=== PATIENT | female | born 1960 | race Caucasian/White ===

== ENCOUNTER → 2021-12-18 | Outpatient (CLI) | payer BC ==
--- NOTE | 2021-12-18 15:41 | CT ---
EXAMINATION TYPE: CT right knee - [facility] Protocol DATE OF EXAM: 12/18/2021 COMPARISON: NONE HISTORY: Right knee pain and osteoarthritis. CT DLP: 690.9 mGycm. Automated Exposure Control for Dose Reduction was Utilized. TECHNIQUE: CT scan of the right lower extremity is performed without contrast, axial images are obtai goldy. FINDINGS: Exam is for surgical planning and not for diagnostic purposes. Metallic hardware from right surgery is present causing streak artifact. No suspicious incidental finding at the level of the pel vis. There is small to moderate-sized suprapatellar joint effusion on the right. There is moderate sized p opliteal cyst. No suspicious incidental findings in the ankles. Surgical change to the left first toe is incidentall y noted. IMPRESSION: As above.
== END | disposition home or self-care (01) ==
LOC: RADCTMAIN 14:16
PROVIDERS: ATTEND Orthopaedic Surgery
DX: M25.561 Pain in right knee (principal)

== ENCOUNTER → 2022-01-16 | Outpatient (CLI) | payer BC ==
[2022-01-16 10:58] LABS: INR 0.9 (<1.2); Partial Thromboplastin Time 23.9 sec (22.0-30.0)
[2022-01-16 14:25] LABS: HCT 42.5 % (37.2-46.3); HGB 13.8 g/dL (12.0-15.0); MCH 27.9 pg (27.0-32.0); MCHC 32.5 g/dL (32.0-37.0); Mean Platelet Volume 10.5 fL (9.5-12.2); NRBC Per 100 WBC 0 /100 WBCS (0.0-0.0); Platelet Count 240 X 10*3/uL (140-440); RBC 4.94 X 10*6/uL (4.10-5.20); RDW 12.6 % (11.5-14.5); WBC 5.16 X 10*3/uL (4.50-10.00)
[2022-01-16 14:38] LABS: African American GFR (CKD) 58.4 (60.0-200.0); Albumin 4.8 g/dL (3.8-4.9); Albumin/Globulin Ratio 1.91 (1.60-3.17); Anion Gap 11.8 mmol/L (10.00-18.00); BUN/Creat Ratio 14.14 Ratio (12.00-20.00); Blood Urea Nitrogen 16.4 mg/dL (9.0-27.0); Calcium 10.1 mg/dL (8.7-10.3); Carbon Dioxide 28.6 mmol/L (20.0-27.5); Globulin 2.5 g/dL (1.6-3.3); Non-African American GFR(CKD) 50.4 (60.0-200.0); Potassium 4.8 mmol/L (3.5-5.5); Total Bilirubin 0.3 mg/dL (0.30-1.20); Total Protein 7.3 g/dL (6.2-8.2)
[2022-01-16 14:41] LABS: Appearance,Urine Clear (Clear); Bilirubin,Urine Negative (Negative); Blood,Urine Negative (Negative); Color,Urine Yellow (Yellow); Ketones,Urine Negative (Negative); Nitrite,Urine Negative (Negative); Specific Gravity,Urine 1.021 (1.001-1.030); Urobilinogen,Urine 0.2 (0.2,1.0)
== END | disposition home or self-care (01) ==
LOC: LABPAT 09:37
PROVIDERS: ATTEND Orthopaedic Surgery
DX: Z01.812 Encounter for preprocedural laboratory examination (principal); Z01.818 Encounter for other preprocedural examination; M16.11 Unilateral primary osteoarthritis, right hip
CPT/HCPCS: 36415; 80053; 81003; 85027; 85610; 85730; 87070; 93005

== ENCOUNTER 2022-01-24 08:36 | Observation (INO) | payer BC ==
[~2022-01-24 08:36] MED LIST: ACETAMINOPHEN TAB 500 MG TAB PO PRN; DEXAMETHASONE SOD PHOSPHATE 10 MG/ML 1 ML VIAL IV PRN; DOCUSATE 100 MG CAP PO PRN; FAMOTIDINE 20 MG/2 ML VIAL IVP PRN; HYDROmorphone 0.5 MG/0.5 ML SYRINGE IVP PRN; KETOROLAC 15 MG/ML 1 ML VIAL IVP PRN; LACTATED RINGERS 1,000 ML IV SCH; MIDAZOLAM 2 MG/2 ML VIAL IV PRN; ONDANSETRON 4 MG/2 ML VIAL IVP PRN; ROPIVACAINE 246.25 MG, EPINEPHrine 0.5 MG, KETOROLAC (30 mg/mL) 30 MG, cloNIDine HCL/PF... MISCELLANE PRN; TRANEXAMIC ACID IN NACL,ISO-OS 1,000 MG in SALINE 1 100ML.BAG IVPB PRN; oxyCODONE ER 10 MG TAB.ER.12H PO PRN
[2022-01-24 09:24] LABS: Glucose,Whole Blood 95 mg/dL (70-110)
[2022-01-24] MEDS ORDERED: LIDOCAINE 1% (10MG/ML) FOR IV START INTRADERMA ONE (09:24)
[2022-01-24] MEDS ORDERED: MIDAZOLAM 2 MG/2 ML VIAL ONE (10:46)
[2022-01-24] MEDS ORDERED: ROPIVACAINE 5 MG/ML 30 ML VIAL ONE (10:46)
[2022-01-24] MEDS ORDERED: LIDOCAINE 2% INJ 20 MG/ML (2 ML VIAL) ONE (10:46)
[2022-01-24] MEDS ORDERED: fentaNYL (PF) 50 MCG/ML 2 ML AMP ONE (10:46)
[2022-01-24] MEDS ORDERED: TRANEXAMIC ACID IN NACL,ISO-OS 1,000 MG/100 ML BAG ONE (10:46)
[2022-01-24] MEDS ORDERED: SODIUM CHLORIDE 0.9% (PF) 10 ML VIAL ONE (10:46)
[2022-01-24] MEDS ORDERED: PROPOFOL 10 MG/ML 20 ML VIAL IV ONE (10:46)
[2022-01-24] MEDS ORDERED: ROPIVACAINE 5 MG/ML 30 ML VIAL MISCELLANE ONE (11:28)
[2022-01-24] MEDS ORDERED: LACTATED RINGERS 1,000 ML IV ONE (11:41)
--- NOTE | 2022-01-24 12:44 | P.ANPRN ---
Procedure Note - Anesthesia - Nerve Block Performed Right iPack Single Time Out Performed: Yes (0957) Date of Procedure: 01/24/22 Procedure Start Time: 10:03 Procedure Stop Time: 10:05 Location of Patient: PreOp Indication: Acute Post-Operative Pain, Requested by Surgeon Specifically requested for management of pain by DrCarissa: Jean Rosenberg Sedation Type: Sedate with meaningful contact maintained Preparation: Sterile Prep Position: Supine Catheter: None Needle Types: Pajunk Needle Gauge: 21 Ultrasound used to visualize needle placement: Yes Ultrasound used to observe medication spread: Yes Injectate: 0.5% Ropivacaine (see comment for volume) (15cc + 10cc nacl pf) Blood Aspirated: No Pain Paresthesia on Injection Noted: No Resistance on Injection: Normal Image Stored and Saved: Yes Events: Uneventful and Well Tolerated
--- NOTE | 2022-01-24 12:44 | P.ANPRN ---
Procedure Note - Anesthesia - Nerve Block Performed Right Adductor Canal Single Time Out Performed: Yes (0957) Date of Procedure: 01/24/22 Procedure Start Time: 09:58 Procedure Stop Time: 10:02 Location of Patient: PreOp Indication: Acute Post-Operative Pain, Requested by Surgeon Specifically requested for management of pain by DrCarissa: Jean Rosenberg Sedation Type: Sedate with meaningful contact maintained Preparation: Sterile Prep Position: Supine Catheter: None Needle Types: Pajunk Needle Gauge: 21 Ultrasound used to visualize needle placement: Yes Ultrasound used to observe medication spread: Yes Injectate: 0.5% Ropivacaine (see comment for volume) (15cc + 10cc nacl pf) Blood Aspirated: No Pain Paresthesia on Injection Noted: No Resistance on Injection: Normal Image Stored and Saved: Yes Events: Uneventful and Well Tolerated
--- NOTE | 2022-01-24 12:45 | P.OP ---
Date of Procedure: 01/24/22 Preoperative Diagnosis: Severe right knee osteoarthritis Postoperative Diagnosis: Same Procedure(s) Performed: Right total knee arthroplasty Implants: 1. [place] Triathlon CR Femur Size #3 2. Bri Triathlon Brandon Tibial Base Size #3 3. Bri Triathlon CS poly Size #3, 9-mm 4. Rbi Triathlon all poly patella, Size #32 Anesthesia: regional, spinal Surgeon: Jean Rosenberg Floor Sander #1: Makeda Solano Estimated Blood Loss (ml): 100 IV fluids (ml): 1,200 Pathology: none sent Condition: stable Disposition: PACU Indications for Procedure: I met with the patient preoperatively in the office setting and discussed treatment of their symptomatic knee arthritis. They failed a long course of nonsurgical treatment and elected to proceed with an elective total knee replacement. I discussed the potential risks and complications at length and gave them ample time to ask questions. Risks discussed included: risks from anesthesia, superficial site surgical infection, acute and/or chronic periprosthetic joint infection, delayed wound healing, drainage, wound necrosis, instability, stiffness, stiffness requiring manipulation and/or revision surgery, damage to local blood vessels or nerves, aseptic loosening of the implants, extensor mechanism issues including disruption, patellar maltracking, avascular necrosis etc., continued or worsened knee pain, generalized dissatisfaction with surgical outcome, need for revision surgery, an inability to regain preinjury level of function, DVT, PE, other medical complications, and possibly loss of life or limb. The patient voiced their understanding that while these are the most common complications other less common complications are possible. They provided both their verbal and written consent to go forward with surgery. Operative Findings: Severe joint space loss primarily in the lateral and patellofemoral compartment with full loss of articular cartilage down to subchondral bone. Moderate articular cartilage loss medial compartment Description of Procedure: The patient was identified in preoperative holding and the correct operative extremity was verified and marked with a marker. I reviewed the consent form with the patient at length. All of their questions were answered. The patient was given a block by anesthesia. They were then brought back to the operating room. They were transferred onto the operating room table where a general anesthetic, preoperative antibiotics, and tranexamic acid were administered by anesthesia. A tourniquet was applied to the proximal aspect of the operative extremity. The contralateral extremity was padded under the heel and secured to the operating room table with a nonsterile blue towel and tape. The ipsilateral arm was carefully draped across the patient's chest and secured with a pillow and foam. A post was applied over the lateral aspect of the ipsilateral thigh and a bolster was placed under the ipsilateral foot. I verified that the operative extremity was stable and the knee was flexed to 90. The operative extremity was then placed in a leg ty, nonsterile drapes were applied, and the extremity was prepped and draped sterilely in the standard sterile fashion. Prior to starting surgery timeout was performed identifying the correct patient, operative extremity, and procedure. The leg was then elevated, exsanguinated with an Esmarch bandage, and the tourniquet was inflated. An anterior midline incision was made sharply with a scalpel. Once I had dissected deep to the superficial fascial layer medial and lateral flaps were elevated. A medial parapatellar arthrotomy was created. Upon opening the knee joint there were diffuse arthritic changes in all 3 compartments. The anterior horn of the medial meniscus were sharply released and a medial release was performed around the posterior medial corner of the knee to facilitate retractor placement. The fat pad was excised with electrocautery. The patella was found to be severely arthritic and a provisional cut was made with a sagittal saw to facilitate mobilization of the extensor mechanism during the procedure. Remnants of the ACL and PCL were then excised from the notch. 4 mm pins were then placed within the incision in the medial distal femur and proximal tibia. Arrays were applied to the pins and I verified they were completely tightened. The knee was then registered with the [email or web address] robot and manipulations in implant position were made to balance the knee and opitmize implant position. Using the Krishan robotic saw all cuts were made in accordance with our plan. After all bony fragments had been removed the cuts were verified with the planar probe. The tibia was then subluxed forward and sized. The knee was brought into flexion and a lamina slip box changer was placed to allow removal of the meniscal remnants both medially and laterally as well as posterior osteophytes. Local anesthetic was then infiltrated around the joint capsule. Trial implants were then placed within the knee. Range of motion and collateral ligament tension was then evaluated. Adjustments in implant size and position were then made accordingly. Once the knee was felt to be appropriately balanced the Krishan pins were removed. The patella was then recut, sized, and punched. A trial patellar button was then placed. With the trial components in place, the patella tracked midline. The femur was then drilled and the trial component removed. The trial tibial component was then appropriately rotated, pinned, and prepared for the keel. Al l trial components were then removed from the knee. The knee was thoroughly irrigated with pulsatile lavage. Cement was prepared via vacuum mixing in a bowl on the back table. I then hand pressurized cement into the femur and tibia and placed the implants beginning with the tibial base tray and poly liner, femoral component, and finally the patellar button. All extruded cement was removed including from the pin sites. Once the cement had hardened the knee was evaluated one final time with the final polyethylene liner in place. The knee had full extension and flexion and felt stable to varus and valgus stress throughout the arc of motion. The tourniquet was released and with the tourniquet down the patella tracked midline. All bleeders were controlled with electrocautery. The knee was then soaked for 3 minutes with a dilute Betadine soak. The knee was thoroughly irrigated using 3 L of sterile saline and pulsatile lavage. A deep drain was placed. The extensor mechanism was then reapproximated using pop off Vicryl sutures followed by a running barbed suture. The knee was then closed in layers with a 0 strata fix for the deep fascial layer, 2-0 strata fix for the superficial subcutaneous layer and Monocryl and Steri-Strips for the skin. A sterile dressing and drain sponge were applied. I verified that all instrument, sponge, and sharp counts were correct. The patien t was then transferred off the operating room table, extubated, and brought to recovery having tolerated the procedure well. Makeda Solano PA-C was required as a skilled railway yard assistant due to the complexity of the procedure for patient positioning, draping, retraction, placement of hardware, and closure of wound. PLAN: The patient can weight-bear as tolerated on the operative extremity. DVT prophylaxis with aspirin 81 mg twice a day based on preoperative risk stratification. Follow-up in the office in 2 weeks for wound check and x-rays of the knee including an AP and lateral.
[2022-01-24] MEDS ORDERED: NALOXONE 0.4 MG/ML 1 ML VIAL IV PRN (13:13)
[2022-01-24] MEDS ORDERED: HYDROmorphone 0.5 MG/0.5 ML SYRINGE IVP PRN ×2 (13:13)
[2022-01-24] MEDS ORDERED: MAGNESIUM HYDROXIDE 2,400 MG/10 ML CUP PO PRN (13:13)
[2022-01-24] MEDS ORDERED: HYDROmorphone 1 MG/ML 1 ML SYRINGE IVP PRN (13:13)
[2022-01-24] MEDS ORDERED: ONDANSETRON 4 MG/2 ML VIAL IVP PRN (13:13)
[2022-01-24] MEDS ORDERED: hydrOXYzine pamoate 25 MG CAP PO PRN (13:13)
[2022-01-24] MEDS ORDERED: HYDROcodone/APAP 5-325MG 1 EACH TAB PO PRN (13:13)
--- NOTE | 2022-01-24 14:48 | XR ---
EXAMINATION TYPE: XR knee limited RT DATE OF EXAM: 01/24/2022 CLINICAL HISTORY: Postoperative evaluation Two views of the right knee are submitted. Identified are changes of total knee arthroplasty with femoral and tibial components appearing well seated. Postsurgical soft tissue changes are noted. Alignment is anatomic.
[2022-01-24] MEDS: LACTATED RINGERS 1,000 ML IV SCH (16:13)
[2022-01-24] MEDS: HYDROcodone/APAP 5-325MG 1 EACH TAB PO PRN (18:19)
--- NOTE | 2022-01-24 19:10 | P.CONS ---
History of Present Illness - Reason for Consult Consult date: 01/24/22 Medical management Requesting physician: Jean Rosenberg - Chief Complaint Right knee surgery - History of Present Illness This is a pleasant 61-year-old patient who follows with Dr. King. Chronic stable medical conditions include GERD, hyperlipidemia, osteoporosis redness, hypothyroid, depression. Patient is undergoing right total knee arthroplasty. Hemovac in place. No nausea vomiting. Denies any cardiac history. Sitting up in bed. Did eat some food. Review of systems: GEN.: None EYES: None HEENT: None NECK: None RESPIRATORY: None CARDIOVASCULAR: None GASTROINTESTINAL: None GENITOURINARY: None MUSCULOSKELETAL: Joint pains LYMPHATICS: None HEMATOLOGICAL: None PSYCHIATRY: None NEUROLOGICAL: None Past medical history to include: GERD, hyperlipidemia, osteoporosis, hypothyroid, depression Social history: Lives alone. No smoking and occasional alcohol. Works for [employer] Physical examination: VITAL SIGNS: 97.3, 61, 16, 1 22 x 75, 95% on 2 L GENERAL: BMI 26.2, sitting up reclining in bed comfortable. EYES: Pupils equal. Conjunctiva normal. HEENT: External appearance of nose and ears normal, oral cavity grossly normal. NECK: JVD not raised; masses not palpable. HEART: First and second heart sounds are normal; no edema. LUNGS: Respiratory rate normal; clear to auscultation. ABDOMEN: Soft, nontender, liver spleen not palpable, no masses palpable. PSYCH: Alert and oriented x3; mood and affect normal. MUSCULOSKELETAL:No Clubbing/cyanosis;muscles-grossly intact, OA, dressing over the right knee, Hemovac NEUROLOGICAL: Cranial nerves grossly intact; no facial asymmetry, power and sensation grossly intact. LYMPHATICS: No lymph nodes palpable in the axilla and neck INVESTIGATIONS, reviewed in the clinical context: Lab work from 01/16/2022: White count 5.1 hemoglobin 13.8 platelets 240 potassium 4.8 BUN 16.4 creatinine is 1.2 Assessment and plan: -Right total knee arthroplasty Pain control. Hemovac in place. Aspirin twice a day for DVT prophylaxis -Depression otherwise specified Wellbutrin, Zoloft -Hyperlipidemia Zocor -Hypothyroid Synthroid -GERD Omeprazole -Primary osteoarthritis Pain control as needed Home medications renewed. Hemovac in place. Aspirin for DVT prophylaxis. Pain control. Care was discussed with the patient. Questions answered. Thank you Dr. Rosenberg Past Medical History Past Medical History: GERD/Reflux, Hyperlipidemia, Osteoarthritis (OA), Renal Disease, Thyroid Disorder Additional Past Medical History / Comment(s): fell and injured rt knee. generalized arthritis. lower back ? bulge and nerve issues steroid shot 01/04/22 History of Any Multi-Drug Resistant Organisms: None Reported Past Surgical History: Joint Replacement, Tonsillectomy Additional Past Surgical History / Comment(s): rt hip replacement 2005, sinus surgery, dental work, right total knee arthroplasty (01.24.22) Past Anesthesia/Blood Transfusion Reactions: No Reported Reaction Additional Past Anesthesia/Blood Transfusion Reaction / Comm: blood transfusion no issue Past Psychological History: Depression Smoking Status: Never smoker Past Alcohol Use History: Occasional Past Drug Use History: None Reported - Past Family History Mother Family Medical History: Cancer Additional Family Medical History / Comment(s): melanoma in eye . liver cancer . knees replaced Father Family Medical History: Cancer, Congestive Heart Failure (CHF) Additional Family Medical History / Comment(s): cancer jaw and prostate. pacemaker ,valve problems Medications and Allergies Home Medications Medication Instructions Recorded Confirmed Type Aspirin 81 mg PO DAILY 01/19/22 01/24/22 History Levothyroxine Sodium [Synthroid] 125 mcg PO DAILY 01/19/22 01/24/22 History Sertraline [Zoloft] 100 mg PO DAILY 01/19/22 01/24/22 History Simvastatin [Zocor] 20 mg PO HS 01/19/22 01/24/22 History Unk Calcium 1 tab PO DAILY 01/19/22 01/24/22 History Unk Fish Oil 1 tab PO DAILY 01/19/22 01/24/22 History Unk Multivitamin 1 tab PO DAILY 01/19/22 01/24/22 History Unk Prilosec 1 tab PO DAILY 01/19/22 01/24/22 History buPROPion [Wellbutrin] 150 mg PO BID 01/19/22 01/24/22 History Aspirin 81 mg PO BID 30 Days #60 tab 01/24/22 Rx Docusate [Colace] 100 mg PO BID #60 capsule 01/24/22 Rx HYDROcodone/APAP 5-325MG [[place] 1 - 2 tab PO Q6HR PRN 7 Days #32 01/24/22 Rx 5-325] tab Omeprazole 40 mg PO DAILY 30 Days #30 cap 01/24/22 Rx Allergies Allergy/AdvReac Type Severity Reaction Status Date / Time adhesive tape Allergy Itching Verified 01/24/22 08:59 niacin Allergy Rash/Hives Verified 01/24/22 08:59 Physical Exam Vitals: Vital Signs Temp Pulse Pulse Resp BP Pulse Ox 01/24/22 16:19 65 132/70 97 01/24/22 16:04 66 127/69 96 01/24/22 15:48 64 114/69 97 01/24/22 15:19 80 129/70 96 01/24/22 15:13 97.3 F L 61 16 122/75 95 01/24/22 15:05 74 130/72 96 01/24/22 14:48 62 122/75 97 01/24/22 14:10 68 16 128/62 97 01/24/22 13:55 55 L 16 128/62 98 01/24/22 13:40 57 L 16 127/64 97 01/24/22 13:25 78 16 127/61 97 01/24/22 13:10 97.1 F L 69 16 137/67 94 L 01/24/22 10:08 58 L 16 136/75 98 01/24/22 09:07 97.9 F 68 18 146/72 96 Intake and Output 01/24/22 01/24/22 01/24/22 06:59 14:59 22:59 Intake Total 1750 450 Output Total 75 85 Balance 1675 365 Intake: IV 1750 Other 450 Output: Drainage 85 Right Knee 85 Estimated Blood Loss 75 Other: # Voids 4 Weight 78.3 kg
[2022-01-24] MEDS: ATORVASTATIN 10 MG TAB PO SCH (21:10)
[2022-01-24] MEDS: buPROPion 75 MG TAB PO SCH (21:10)
[2022-01-24] MEDS: ASPIRIN 81 MG PO SCH (21:10)
[2022-01-25] MEDS: HYDROcodone/APAP 5-325MG 1 EACH TAB PO PRN ×4 (00:16→21:56)
[2022-01-25] MEDS: LACTATED RINGERS 1,000 ML IV SCH ×3 (00:17→15:13)
[2022-01-25] MEDS: LEVOTHYROXINE 125 MCG TAB PO SCH (06:14)
--- NOTE | 2022-01-25 06:58 | P.PN ---
Subjective Progress Note Date: 01/25/22 Overall the patient is doing well. Her pain in the right knee is controlled. She denies chest pain or shortness of breath. Objective - Vital Signs Vital signs: Vital Signs Temp 98.2 F 01/25/22 02:00 Pulse 77 01/25/22 02:00 Resp 17 01/25/22 02:00 BP 117/69 01/25/22 02:00 Pulse Ox 94 L 01/25/22 02:00 FiO2 Intake & Output 01/24/22 01/24/22 01/25/22 06:59 18:59 06:59 Intake Total 2200 Output Total 160 300 Balance 2040 -300 Weight 78.3 kg Intake: IV 1750 Other 450 Output: Drainage 85 300 Right Knee 85 300 Estimated Blood Loss 75 Other: # Voids 4 2 - Exam The patient is resting comfortably in bed. She is alert and able to answer questions. A focused exam of the right lower extremity was conducted. On inspection she has a clean dressing with no strikethrough bleeding. Her drain is intact and was removed. Her thigh and calf are soft. Femoral nerve function is intact. Motor and sensory function are intact distally. Assessment and Plan Assessment: Postoperative day #1 status post right total knee arthroplasty, doing well Plan: 1. Weightbearing as tolerated right lower extremity, up with assistance 2. Physical therapy 3. Drain pulled this morning 4. DVT prophylaxis with aspirin 81 mg twice a day 30 days 5. Dispo: Patient has concerns regarding going home today on a holiday she has no one to help care for her today. She would like to stay until tomorrow. We'll see how she does today complaining discharging home tomorrow.
--- NOTE | 2022-01-25 07:00 | P.DS ---
Providers Date of admission: 01/24/2022 Attending physician: Jean Rosenberg Consults: 01/24/22 13:15 Consult Physician Routine Consulting Provider: Twan Meyer Consult Reason/Comments: medical management Do you want consulting provider notified?: Yes Primary care physician: Dorys Cedeno [place] [facility] Course: The patient underwent an uncomplicated total knee arthroplasty and was admitted under my care. She was seen by internal medicine for perioperative medical management. Her Hemovac was pulled on postoperative day #1. She was given 2 doses of antibiotics postoperatively. She was treated with aspirin for DVT prophylaxis based on preoperative risk stratification. She was opened were cleared for discharge home with home health. Plan - Discharge Summary Discharge Rx Participant: No New Discharge Prescriptions: New Docusate [Colace] 100 mg PO BID #60 capsule Aspirin 81 mg PO BID 30 Days #60 tab HYDROcodone/APAP 5-325MG [[place] 5-325] 1 - 2 tab PO Q6HR PRN 7 Days #32 tab PRN Reason: Pain Omeprazole 40 mg PO DAILY 30 Days #30 cap No Action buPROPion [Wellbutrin] 150 mg PO BID Unk Multivitamin 1 tab PO DAILY Unk Fish Oil 1 tab PO DAILY Aspirin 81 mg PO DAILY Levothyroxine Sodium [Synthroid] 125 mcg PO DAILY Simvastatin [Zocor] 20 mg PO HS Sertraline [Zoloft] 100 mg PO DAILY Unk Prilosec 1 tab PO DAILY Unk Calcium 1 tab PO DAILY Discharge Medication List Aspirin 81 mg PO DAILY 01/19/22 [History] Levothyroxine Sodium [Synthroid] 125 mcg PO DAILY 01/19/22 [History] Sertraline [Zoloft] 100 mg PO DAILY 01/19/22 [History] Simvastatin [Zocor] 20 mg PO HS 01/19/22 [History] Unk Calcium 1 tab PO DAILY 01/19/22 [History] Unk Fish Oil 1 tab PO DAILY 01/19/22 [History] Unk Multivitamin 1 tab PO DAILY 01/19/22 [History] Unk Prilosec 1 tab PO DAILY 01/19/22 [History] buPROPion [Wellbutrin] 150 mg PO BID 01/19/22 [History] Aspirin 81 mg PO BID 30 Days #60 tab 01/24/22 [Rx] Docusate [Colace] 100 mg PO BID #60 capsule 01/24/22 [Rx] HYDROcodone/APAP 5-325MG [[place] 5-325] 1 - 2 tab PO Q6HR PRN 7 Days #32 tab 01/24/22 [Rx] Omeprazole 40 mg PO DAILY 30 Days #30 cap 01/24/22 [Rx] Follow up Appointment(s)/Referral(s): [facility], [NON-STAFF] - As Needed Jean Rosenberg MD [Medical Doctor] - 2 Weeks Activity/Diet/Wound Care/Special Instructions: Weight bear to tolerance on operative extremity with a walker. Keep operative dressing intact until follow-up appointment in the office. Call the office if dressing becomes saturated or falls off. May shower over dressing. Take pain medications as prescribed. Take aspirin 81mg BID x 4 weeks for blood clot prevention. Follow-up in the office in two weeks at [facility]. Call the office with any questions or concerns, Discharge Disposition: HOME WITH HOME HEALTH SERVICES
[2022-01-25] MEDS: SERTRALINE 100 MG TAB PO SCH (07:50)
[2022-01-25] MEDS: ASPIRIN 81 MG PO SCH ×2 (07:50→21:56)
[2022-01-25] MEDS: buPROPion 75 MG TAB PO SCH ×2 (07:51→21:56)
[2022-01-25] MEDS ORDERED: LACTULOSE 20 GM/30 ML CUP PO ONE (11:33)
[2022-01-25 12:15] LABS: Basophils # (A) 0.01 X 10*3/uL (0.00-0.10); Basophils % (A) 0.1 %; Eosinophils # (A) 0 X 10*3/uL (0.04-0.35); Eosinophils % (A) 0 %; HCT 30.5 % (37.2-46.3); HGB 9.9 g/dL (12.0-15.0); Immature Grans, Automated 0.3 %; Lymphocytes # (A) 1.06 X 10*3/uL (0.90-5.00); Lymphocytes % (A) 11.7 %; MCH 27.8 pg (27.0-32.0); MCHC 32.5 g/dL (32.0-37.0); MCV 85.7 fL (80.0-97.0); Mean Platelet Volume 10.5 fL (9.5-12.2); Monocytes # (A) 0.65 X 10*3/uL (0.20-1.00); Monocytes % (A) 7.2 %; NRBC Per 100 WBC 0 /100 WBCS (0.0-0.0); Neutrophils # (A) 7.28 X 10*3/uL (1.80-7.70); Neutrophils % (A) 80.7 %; Platelet Count 188 X 10*3/uL (140-440); RBC 3.56 X 10*6/uL (4.10-5.20); RDW 13.1 % (11.5-14.5); WBC 9.03 X 10*3/uL (4.50-10.00)
--- NOTE | 2022-01-25 14:45 | P.PN ---
Progress Note - Text Progress Note Date: 01/25/22 Chief Complaint Right knee surgery Hospital course This is a pleasant 61-year-old patient who follows with Dr. King. Chronic stable medical conditions include GERD, hyperlipidemia, osteoporosis redness, hypothyroid, depression. Patient is undergoing right total knee arthroplasty. Hemovac in place. No nausea vomiting. Denies any cardiac history. Sitting up in bed. Did eat some food. 01/25/2022: Some pain in the right knee. Did ambulate. No nausea vomiting. Oral intake fair. Active Medications Hydrocodone Bitart/Acetaminophen (Hydrocodone/Apap 5-325mg 1 Each Tab) 1 each PO Q6HR PRN PRN Reason: Pain Scale 1 to 5 Stop: 02/23/22 13:14 Hydrocodone Bitart/Acetaminophen (Hydrocodone/Apap 5-325mg 1 Each Tab) 2 each PO Q6HR PRN PRN Reason: Pain Scale 6 to 10 Stop: 02/23/22 13:14 Last Admin: 01/25/22 13:58 Dose: 2 each Aspirin (Aspirin 81 Mg) 81 mg PO BID [facility] Stop: 02/23/22 21:01 Last Admin: 01/25/22 07:50 Dose: 81 mg Atorvastatin Calcium (Atorvastatin 10 Mg Tab) 10 mg PO [facility] Last Admin: 01/24/22 21:10 Dose: 10 mg Bupropion HCl (Bupropion 75 Mg Tab) 150 mg PO BID [facility] Last Admin: 01/25/22 07:51 Dose: 150 mg Hydromorphone HCl (Hydromorphone 0.5 Mg/0.5 Ml Syringe) 0.5 mg IVP Q3HR PRN PRN Reason: Pain Scale 4 to 6 Stop: 02/23/22 13:14 Hydromorphone HCl (Hydromorphone 1 Mg/Ml 1 Ml Syringe) 1 mg IVP Q3HR PRN PRN Reason: Pain Scale 7 to 10 Stop: 02/23/22 13:14 Hydromorphone HCl (Hydromorphone 0.5 Mg/0.5 Ml Syringe) 0.25 mg IVP Q3HR PRN PRN Reason: Pain Scale 1 to 3 Stop: 02/23/22 13:14 Hydroxyzine Pamoate (Hydroxyzine Pamoate 25 Mg Cap) 25 mg PO Q4HR PRN PRN Reason: Nausea, Anxiety, Pain Control Stop: 02/23/22 13:14 Lactated Ringer's (Lactated Ringers) 1,000 mls @ 100 mls/hr IV .Q10H [facility] Stop: 02/23/22 13:16 Last Admin: 01/25/22 04:43 Dose: 100 mls/hr Levothyroxine Sodium (Levothyroxine 125 Mcg Tab) 125 mcg PO DAILY@0630 [facility] Last Admin: 01/25/22 06:14 Dose: 125 mcg Magnesium Hydroxide (Magnesium Hydroxide 2,400 Mg/10 Ml Cup) 2,400 mg PO DAILY PRN PRN Reason: Constipation Stop: 02/23/22 13:14 Naloxone HCl (Naloxone 0.4 Mg/Ml 1 Ml Vial) 0.2 mg IV Q2M PRN PRN Reason: Opioid Reversal Stop: 02/23/22 13:14 Ondansetron HCl (Ondansetron 4 Mg/2 Ml Vial) 4 mg IVP Q8HR PRN PRN Reason: Nausea And Vomiting Stop: 02/23/22 13:14 Sertraline HCl (Sertraline 100 Mg Tab) 100 mg PO DAILY [facility] Last Admin: 01/25/22 07:50 Dose: 100 mg Past medical history to include: GERD, hyperlipidemia, osteoporosis, hypothyroid, depression Social history: Lives alone. No smoking and occasional alcohol. Works for [employer] Physical examination: VITAL SIGNS: 98.5, 71, 16, 1 47 x 73, 92% room air GENERAL: Sitting up in bed, eating lunch, comfortable EYES: Pupils equal. Conjunctiva normal. HEENT: External appearance of nose and ears normal, oral cavity grossly normal. NECK: JVD not raised; masses not palpable. HEART: First and second heart sounds are normal; no edema. LUNGS: Respiratory rate normal; clear to auscultation. ABDOMEN: Soft, nontender, liver spleen not palpable, no masses palpable. PSYCH: Alert and oriented x3; mood and affect normal. MUSCULOSKELETAL:No Clubbing/cyanosis;muscles-grossly intact, OA, dressing over the right knee, Hemovac INVESTIGATIONS, reviewed in the clinical context: 01/25/2022: WBC 9.0 hemoglobin 9.9 platelets 188 Lab work from 01/16/2022: White count 5.1 hemoglobin 13.8 platelets 240 potassium 4.8 BUN 16.4 creatinine is 1.2 Assessment and plan: -Right total knee arthroplasty Pain control. Hemovac in place. Aspirin twice a day for DVT prophylaxis -Acute postprocedure blood loss anemia expected from surgery Ferrous sulfate -Depression otherwise specified Wellbutrin, Zoloft -Hyperlipidemia Zocor -Hypothyroid Synthroid -GERD Omeprazole -Primary osteoarthritis Pain control as needed Home medications renewed. Hemovac in place. Aspirin for DVT prophylaxis. Pain control. Care was discussed with the patient. Questions answered. Thank you Dr. Rosenberg
[2022-01-25] MEDS: FERROUS SULFATE 325 MG TAB PO SCH (17:04)
[2022-01-25 21:10] VITALS: RESP 17
[2022-01-25] MEDS: ATORVASTATIN 10 MG TAB PO SCH (21:56)
[2022-01-26] MEDS: LACTATED RINGERS 1,000 ML IV SCH (01:13)
[2022-01-26] MEDS: HYDROcodone/APAP 5-325MG 1 EACH TAB PO PRN ×2 (03:56→11:10)
[2022-01-26] MEDS: FERROUS SULFATE 325 MG TAB PO SCH (06:35)
[2022-01-26] MEDS: LEVOTHYROXINE 125 MCG TAB PO SCH (06:35)
[2022-01-26 07:21] VITALS: BP 157/82; PULSE 77; TEMP 99.1
[2022-01-26] MEDS: SERTRALINE 100 MG TAB PO SCH (08:16)
[2022-01-26] MEDS: ASPIRIN 81 MG PO SCH (08:16)
[2022-01-26] MEDS: buPROPion 75 MG TAB PO SCH (08:16)
--- NOTE | 2022-01-26 21:33 | P.PN ---
Progress Note - Text Progress Note Date: 01/26/22 Patient was examined bedside this morning with Dr. Rosenberg. She is status-post right total knee arthroplasty on 01/24/22. She is ambulating with a walker with minimal assistance. Pain is well- controlled. She is tolerating her diet well. Patient feels comfortable discharging home with home health care today. She has no complaints the day of discharge. On examination, patient is sitting up in bed in no apparent distress. She is alert and orientated x3. On inspection of the right knee, there is a clean, dry, intact Opsite dressing in place. No bleeding or drainage through the dressing. Mild swelling. Motor and sensory function intact right lower extremity. Right lower extremity warm and well perfused. Calf nontender. Patient will discharge home today, pending medical clearance. She should follow- up in the office in two weeks. Please see med rec for accurate list of discharge medications.
--- NOTE | 2022-01-27 11:36 | P.PN ---
Progress Note - Text Progress Note Date: 01/26/22 Chief Complaint Right knee surgery Hospital course This is a pleasant 61-year-old patient who follows with Dr. King. Chronic stable medical conditions include GERD, hyperlipidemia, osteoporosis redness, hypothyroid, depression. Patient is undergoing right total knee arthroplasty. Hemovac in place. No nausea vomiting. Denies any cardiac history. Sitting up in bed. Did eat some food. 01/25/2022: Some pain in the right knee. Did ambulate. No nausea vomiting. Oral intake fair. 01/26/2022: Doing better. Oral intake good. Pain control. Care was discussed the patient. Questions answered. Current medications reviewed Past medical history to include: GERD, hyperlipidemia, osteoporosis, hypothyroid, depression Social history: Lives alone. No smoking and occasional alcohol. Works for [employer] Physical examination: VITAL SIGNS: 99.1, 77, 17, 1 5072, 91% room air GENERAL: Sitting up,, comfortable EYES: Pupils equal. Conjunctiva normal. HEENT: External appearance of nose and ears normal, oral cavity grossly normal. NECK: JVD not raised; masses not palpable. HEART: First and second heart sounds are normal; no edema. LUNGS: Respiratory rate normal; clear to auscultation. ABDOMEN: Soft, nontender, liver spleen not palpable, no masses palpable. PSYCH: Alert and oriented x3; mood and affect normal. MUSCULOSKELETAL:No Clubbing/cyanosis;muscles-grossly intact, OA, dressing over the right knee, Hemovac INVESTIGATIONS, reviewed in the clinical context: 01/25/2022: WBC 9.0 hemoglobin 9.9 platelets 188 Lab work from 01/16/2022: White count 5.1 hemoglobin 13.8 platelets 240 potassium 4.8 BUN 16.4 creatinine is 1.2 Assessment and plan: -Right total knee arthroplasty Pain control. Hemovac removed. Aspirin twice a day for DVT prophylaxis -Acute postprocedure blood loss anemia expected from surgery Ferrous sulfate -Depression otherwise specified Wellbutrin, Zoloft -Hyperlipidemia Zocor -Hypothyroid Synthroid -GERD Omeprazole -Primary osteoarthritis Pain control as needed Care was discussed with the patient. Questions answered. Follow-up with PCP up and discharge. Thank you Dr. Rosenberg
== END 2022-01-26 14:32 | disposition home health service (06) ==
LOC: OR 08:36 → 4SSUR 13:02 → OR 01-26 07:33
PROVIDERS: ADMIT Orthopaedic Surgery; ATTEND Orthopaedic Surgery
DX: M17.11 Unilateral primary osteoarthritis, right knee (principal); E78.5 Hyperlipidemia, unspecified; E03.9 Hypothyroidism, unspecified; F32.A Depression, unspecified; D50.0 Iron deficiency anemia secondary to blood loss (chronic); F41.9 Anxiety disorder, unspecified; M81.0 Age-related osteoporosis without current pathological fracture; K30 Functional dyspepsia; N28.9 Disorder of kidney and ureter, unspecified; R26.81 Unsteadiness on feet; K21.9 Gastro-esophageal reflux disease without esophagitis; N18.9 Chronic kidney disease, unspecified; Z97.3 Presence of spectacles and contact lenses; Z96.641 Presence of right artificial hip joint; Z83.3 Family history of diabetes mellitus; Z82.49 Family history of ischemic heart disease and other diseases of the circulatory system; Z84.89 Family history of other specified conditions; Z79.82 Long term (current) use of aspirin; Z79.1 Long term (current) use of non-steroidal anti-inflammatories (NSAID); Z79.890 Hormone replacement therapy; Z79.899 Other long term (current) drug therapy; Z88.8 Allergy status to other drugs, medicaments and biological substances; Z88.2 Allergy status to sulfonamides; Z98.890 Other specified postprocedural states; Z80.8 Family history of malignant neoplasm of other organs or systems; Z80.42 Family history of malignant neoplasm of prostate; Z83.42 Family history of familial hypercholesterolemia; Z80.0 Family history of malignant neoplasm of digestive organs
CPT/HCPCS: 97116; 97163; 64447; 64999; 76942; 85025; 73560; 27447; G0378; C1776; C1713; J2250; J0171; J1100; J0690 ×2; J2405; J3010; J1885 ×2; J2795; J2704; J0735; J2001

== ENCOUNTER → 2023-05-17 | Outpatient (CLI) | payer BC ==
--- NOTE | 2023-05-17 19:06 | CT ---
EXAMINATION TYPE: CT left knee - NIHARIKA Protocol CT DLP: 873 mGycm, Automated exposure control for dose reduction was used. DATE OF EXAM: 05/17/2023 12:04 PM COMPARISON: None CLINICAL INDICATION:Female, 62 years old with history of M25.561 PAIN IN RIGHT KNEE; PHH, pre-op left total knee TECHNIQUE: Axial images were obtained of the CT left knee - NIHARIKA Protocol, Additional coronal and sag ittal reformatted images and soft tissue and bone window were obtained for review. Contrast used: mL of , (None if empty) Oral contrast used: (None if empty) FINDINGS: The visualized portion of the hips demonstrate osteoarthrosis changes on the left with hip arthroplasty on the right. Hardware appears intact. With osteophyte formation of the acetabulum. No a cute intrapelvic process. The bony structures of the pelvis are intact. The visualized knee demonstrates osteophyte formation of the tibial plateau, the patella and femoral condyles. There is near complete loss of joint space most pronounced medially with subchondral scler osis. No evidence of fracture. Visualized ankle demonstrates multifocal osteoarthrosis changes with osteophyte formation and mild linda int space narrowing. No evidence of fractures. Tubal ligation devices bilaterally. IMPRESSION: End-stage osteoarthrosis changes of the knee.
== END | disposition home or self-care (01) ==
LOC: LABPAT 09:45
PROVIDERS: ATTEND Orthopaedic Surgery
DX: M17.12 Unilateral primary osteoarthritis, left knee (principal); Z47.1 Aftercare following joint replacement surgery; Z96.651 Presence of right artificial knee joint

== ENCOUNTER → 2023-05-17 | Outpatient (CLI) | payer BC ==
[2023-05-17 10:48] LABS: INR 0.9 (<1.2); Partial Thromboplastin Time 24.1 sec (22.0-30.0); Prothrombin Time 10.1 sec (10.0-12.5)
[2023-05-17 15:24] LABS: HCT 40.9 % (37.2-46.3); HGB 13.2 g/dL (12.0-15.0); MCH 29.8 pg (27.0-32.0); MCHC 32.3 g/dL (32.0-37.0); MCV 92.3 FL (80.0-97.0); Mean Platelet Volume 10.5 FL (9.5-12.2); NRBC Per 100 WBC 0 X 10*3/uL (0.00-0.01); Platelet Count 245 X 10*3/uL (140-440); RBC 4.43 X 10*6/uL (4.10-5.20); RDW 12.9 % (11.5-14.5); WBC 3.93 X 10*3/uL (4.50-10.00)
[2023-05-17 15:44] LABS: BUN/Creat Ratio 9.58 Ratio (12.00-20.00); Blood Urea Nitrogen 11.5 mg/dL (9.0-27.0); Chloride 105 mmol/L (96-109); Glucose 98 mg/dL (70-110); Potassium 4.4 mmol/L (3.5-5.5); Sodium 145 mmol/L (135-145)
[2023-05-17 15:45] LABS: ALT 27 U/L (8-44); AST 30 U/L (13-35); Albumin 4.7 g/dL (3.8-4.9); Albumin/Globulin Ratio 2.14 Ratio (1.60-3.17); Alkaline Phosphatase 123 U/L (41-126); Calcium 10.5 mg/dL (8.7-10.3); Carbon Dioxide 29.5 mmol/L (21.6-31.8); Globulin 2.2 g/dL (1.6-3.3); Total Bilirubin 0.3 mg/dL (0.3-1.2); Total Protein 6.9 g/dL (6.2-8.2)
== END | disposition home or self-care (01) ==
LOC: LABPAT 09:59
PROVIDERS: ATTEND Orthopaedic Surgery
DX: Z01.818 Encounter for other preprocedural examination (principal); Z22.322 Carrier or suspected carrier of Methicillin resistant Staphylococcus aureus
CPT/HCPCS: 80053; 83036; 85027; 85610; 85730; 87070

== ENCOUNTER 2023-06-05 10:25 | Day surgery (SDC) | payer BC ==
[~2023-06-05 10:25] MED LIST changes: -ACETAMINOPHEN TAB 500 MG TAB PO PRN; -DOCUSATE 100 MG CAP PO PRN; -FAMOTIDINE 20 MG/2 ML VIAL IVP PRN; -KETOROLAC 15 MG/ML 1 ML VIAL IVP PRN; -LACTATED RINGERS 1,000 ML IV SCH; +LIDOCAINE 1% (10MG/ML) FOR IV START INTRADERMA PRN; -ONDANSETRON 4 MG/2 ML VIAL IVP PRN; -ROPIVACAINE 246.25 MG, EPINEPHrine 0.5 MG, KETOROLAC (30 mg/mL) 30 MG, cloNIDine HCL/PF... MISCELLANE PRN; +TRANEXAMIC 1,000 MG/100ML-NACL 1,000 MG in SALINE 1 100ML.BAG IV PRN; +TRANEXAMIC 1,000 MG/100ML-NACL 1,000 MG in SALINE 1 100ML.BAG IVPB PRN; -TRANEXAMIC ACID IN NACL,ISO-OS 1,000 MG in SALINE 1 100ML.BAG IVPB PRN; -oxyCODONE ER 10 MG TAB.ER.12H PO PRN
[2023-06-05] MEDS: LACTATED RINGERS 1,000 ML IV ONE ×2 (11:00→14:16)
[2023-06-05] MEDS: DOCUSATE 100 MG CAP PO PRN (11:10)
[2023-06-05] MEDS: oxyCODONE ER 10 MG TAB.ER.12H PO PRN (11:10)
[2023-06-05] MEDS: ACETAMINOPHEN TAB 500 MG TAB PO PRN (11:10)
[2023-06-05] MEDS: DEXAMETHASONE SOD PHOSPHATE 4 MG/ML 1 ML VIAL IV ONE (11:19)
[2023-06-05] MEDS: ONDANSETRON 4 MG/2 ML VIAL IVP PRN (11:19)
[2023-06-05] MEDS: KETOROLAC 15 MG/ML 1 ML VIAL IVP PRN (11:19)
[2023-06-05] MEDS: FAMOTIDINE 20 MG/2 ML VIAL IVP PRN (11:19)
[2023-06-05] MEDS: fentaNYL (PF) 50 MCG/ML 2 ML AMP IVP ONE (12:08)
[2023-06-05] MEDS: MIDAZOLAM 2 MG/2 ML VIAL IVP ONE (12:08)
[2023-06-05] MEDS ORDERED: GLYCOPYRROLATE 0.2 MG/ML 2 ML VIAL ONE (12:33)
[2023-06-05] MEDS ORDERED: ePHEDrine 50 MG/ML 1 ML VIAL ONE (12:33)
[2023-06-05] MEDS ORDERED: MIDAZOLAM 2 MG/2 ML VIAL ONE (12:33)
[2023-06-05] MEDS ORDERED: SODIUM CHLORIDE 0.9% (PF) 10 ML VIAL ONE (12:33)
[2023-06-05] MEDS ORDERED: LIDOCAINE 1% INJ 10MG/ML (20 ML MDV) ONE (12:33)
[2023-06-05] MEDS ORDERED: ROPIVACAINE 5 MG/ML 30 ML VIAL ONE (12:33)
[2023-06-05] MEDS ORDERED: TRANEXAMIC 1,000 MG/100ML-NACL PREMIX BAG ONE (12:33)
[2023-06-05] MEDS ORDERED: fentaNYL (PF) 50 MCG/ML 2 ML AMP ONE (12:33)
[2023-06-05] MEDS ORDERED: SUCCINYLCHOLINE CHLORIDE 200 MG/10 ML VIAL IV ONE (12:33)
[2023-06-05] MEDS ORDERED: NEOSTIGMINE 1 MG/ML 10 ML VIAL ONE (12:33)
[2023-06-05] MEDS ORDERED: ROCURONIUM 10 MG/ML (5 ML VIAL) IV ONE (12:33)
[2023-06-05] MEDS ORDERED: PROPOFOL 10 MG/ML 20 ML VIAL IV ONE (12:33)
[2023-06-05] MEDS ORDERED: WATER FOR INJECTION, STERILE 10 ML VIAL IV ONE (12:33)
[2023-06-05] MEDS: ROPIVACAINE/EPI/CLONIDINE/KET 50 ML SYRINGE MISCELLANE PRN (13:45)
--- NOTE | 2023-06-05 14:17 | P.ANPRN ---
Procedure Note - Anesthesia - Nerve Block Performed Left Adductor Canal Single Time Out Performed: Yes (1207) Date of Procedure: 06/05/23 Procedure Start Time: 12:08 Procedure Stop Time: 12:13 Location of Patient: PreOp Indication: Acute Post-Operative Pain, Requested by Surgeon Specifically requested for management of pain by DrCarisas: Jean Rosenberg Sedation Type: Sedate with meaningful contact maintained Preparation: Sterile Prep Position: Supine Catheter: None Needle Types: Pajunk Needle Gauge: 21 Ultrasound used to visualize needle placement: Yes Ultrasound used to observe medication spread: Yes Injectate: 0.5% Ropivacaine (see comment for volume) (15cc + 10cc nacl pf) Blood Aspirated: No Pain Paresthesia on Injection Noted: No Resistance on Injection: Normal Image Stored and Saved: Yes Events: Uneventful and Well Tolerated
--- NOTE | 2023-06-05 14:18 | P.ANPRN ---
Procedure Note - Anesthesia - Nerve Block Performed Left iPack Single Time Out Performed: Yes (1207) Date of Procedure: 06/05/23 Procedure Start Time: 12:14 Procedure Stop Time: 12:17 Location of Patient: PreOp Indication: Acute Post-Operative Pain, Requested by Surgeon Specifically requested for management of pain by DrCarissa: Jean Rosenberg Sedation Type: Sedate with meaningful contact maintained Preparation: Sterile Prep Position: Supine Catheter: None Needle Types: Pajunk Needle Gauge: 21 Ultrasound used to visualize needle placement: Yes Ultrasound used to observe medication spread: Yes Injectate: 0.5% Ropivacaine (see comment for volume) (15cc +10cc nacl pf) Blood Aspirated: No Pain Paresthesia on Injection Noted: No Resistance on Injection: Normal Image Stored and Saved: Yes Events: Uneventful and Well Tolerated
--- NOTE | 2023-06-05 14:27 | P.OP ---
Date of Procedure: 06/05/23 Preoperative Diagnosis: severe left knee osteoarthritis Postoperative Diagnosis: severe left knee osteoarthritis Procedure(s) Performed: 1. Left total knee arthroplasty 2. Computer assisted musculoskeletal navigation using CT/MRI images Implants: 1. [place] [employer] CR Femur Size #3 2. [employer] [place] Tibial Base Size #3 3. [place] [employer] CS poly Size #10 4. [place] [employer] all poly patella, Size #32 Anesthesia: PKA, regional Surgeon: Jean Rosenberg Hazmat Cdl Driver #1: Sachi Funes Estimated Blood Loss (ml): 100 IV fluids (ml): 900 Pathology: none sent Condition: stable Disposition: PACU Indications for Procedure: I met with the patient preoperatively in the office setting and discussed treatment of their symptomatic knee arthritis. They failed a long course of nonsurgical treatment and elected to proceed with an elective total knee replacement. I discussed the potential risks and complications at length and gave them ample time to ask questions. Risks discussed included: risks from anesthesia, superficial site surgical infection, acute and/or chronic periprosthetic joint infection, delayed wound healing, drainage, wound necrosis, instability, stiffness, stiffness requiring manipulation and/or revision surgery, damage to local blood vessels or nerves, aseptic loosening of the implants, extensor mechanism issues including disruption, patellar maltracking, avascular necrosis etc., continued or worsened knee pain, generalized dissatisfaction with surgical outcome, need for revision surgery, an inability to regain preinjury level of function, DVT, PE, other medical complications, and possibly loss of life or limb. The patient voiced their understanding that while these are the most common complications other less common complications are possible. They provided both their verbal and written consent to go forward with surgery. Operative Findings: severe tricompartmental osteoarthritis Description of Procedure: The patient was identified in preoperative holding and the correct operative extremity was verified and marked with a marker. I reviewed the consent form with the patient at length. All of their questions were answered. The patient was given a block by anesthesia. They were then brought back to the operating room. They were transferred onto the operating room table where a general anesthetic, preoperative antibiotics, and tranexamic acid were administered by anesthesia. A tourniquet was applied to the proximal aspect of the operative extremity. The contralateral extremity was padded under the heel and secured to the operating room table with a nonsterile blue towel and tape. The ipsilateral arm was carefully draped across the patient's chest and secured with a pillow and foam. A post was applied over the lateral aspect of the ipsilateral thigh and a bolster was placed under the ipsilateral foot. I verified that the operative extremity was stable and the knee was flexed to 90. The operative extremity was then placed in a leg ty, nonsterile drapes were applied, and the extremity was prepped and draped sterilely in the standard sterile fashion. Prior to starting surgery timeout was performed identifying the correct patient, operative extremity, and procedure. The leg was then elevated, exsanguinated with an Esmarch bandage, and the tourniquet was inflated. An anterior midline incision was made sharply with a scalpel. Once I had dissected deep to the superficial fascial layer medial and lateral flaps were elevated. A medial parapatellar arthrotomy was created. Upon opening the knee joint there were diffuse arthritic changes in all 3 compartments. The anterior horn of the medial meniscus were sharply released and a medial release was per formed around the posterior medial corner of the knee to facilitate retractor placement. The fat pad was excised with electrocautery. The patella was found to be severely arthritic and a provisional cut was made with a sagittal saw to facilitate mobilization of the extensor mechanism during the procedure. Remnants of the ACL and PCL were then excised from the notch. 4 mm pins were then placed within the incision in the medial distal femur and proximal tibia. Arrays were applied to the pins and I verified they were completely tightened. The knee was then registered with the [employer] robot and manipulations in implant position were made to balance the knee and opitmize implant position. Using the Krishan robotic saw all cuts were made in accordance with our plan. After all bony fragments had been removed the cuts were verified with the planar probe. The tibia was then subluxed forward and sized. The knee was brought into flexion and a lamina recreation clerk was placed to allow removal of the meniscal remnants both medially and laterally as well as posterior osteophytes. Local anesthetic was then infiltrated around the joint capsule. Trial implants were then placed within the knee. Range of motion and collateral ligament tension was then evaluated. Adjustments in implant size and position were then made accordingly. Once the knee was felt to be appropriately balanced the Krishan pins were removed. The patella was then recut, sized, and punched. A trial patellar button was then placed. With the trial components in place, the patella tracked midline. The femur was then drilled and the trial component removed. The trial tibial component was then appropriately rotated, pinned, and prepared for the keel. All trial components were then removed from the knee. The knee was thoroughly irrigated with pulsatile lavage. Cement was prepared via vacuum mixing in a bowl on the back table. I then hand pressurized cement into the femur and tibia and placed the implants beginning with the tibial base tray and poly liner, femoral component, and finally the patellar button. All extruded cement was removed including from the pin sites. Once the cement had hardened the knee was evaluated one final time with the final polyethylene liner in place. The knee had full extension and flexion and felt stable to varus and valgus stress throughout the arc of motion. The tourniquet was released and with the tourniquet down the patella tracked midline. All bleeders were controlled with electrocautery. The knee was then soaked for 3 minutes with a dilute Betadine soak. The knee was thoroughly irrigated using 3 L of sterile saline and pulsatile lavage. The extensor mechanism was then reapproximated using pop off Vicryl sutures followed by a running barbed suture. The knee was then closed in layers with a 0 strata fix for the deep fascial layer, 2-0 strata fix for the superficial subcutaneous layer and Monocryl and Steri-Strips for the skin. A sterile dressing was applied. I verified that all instrument, sponge, and sharp counts were correct. The patient was then transferred off the operating room table, extubated, and brought to recovery having tolerated the procedure well. Sachi Funes PA-C was required as a skilled nurseryman assistant due to the complexity of surgery for patient positioning, draping, exposure, retraction, placement of implants, and closure of wound. PLAN: The patient can weight-bear as tolerated on the operative extremity. DVT prophylaxis with aspirin 81 mg twice a day based on preoperative risk stratification. Follow-up in the office in 2 weeks for wound check and x-rays of the knee including an AP and lateral.
[2023-06-05] MEDS ORDERED: HYDROmorphone 1 MG/ML 1 ML SYRINGE IVP PRN (14:47)
[2023-06-05] MEDS ORDERED: HYDROmorphone 0.5 MG/0.5 ML SYRINGE IVP PRN ×2 (14:47)
[2023-06-05] MEDS ORDERED: bisacodyL 10 MG SUPP RECTAL PRN (14:47)
[2023-06-05] MEDS ORDERED: NA PHOS,M-B/NA PHOS,DI-BA 133 ML ENEMA RECTAL PRN (14:47)
[2023-06-05] MEDS ORDERED: NALOXONE 0.4 MG/ML 1 ML VIAL IV PRN (14:47)
[2023-06-05] MEDS ORDERED: ONDANSETRON 4 MG/2 ML VIAL IVP PRN (14:47)
[2023-06-05] MEDS ORDERED: MAGNESIUM HYDROXIDE 2,400 MG/30 ML CUP PO PRN (14:47)
[2023-06-05] MEDS ORDERED: HYDROcodone/APAP 7.5-325MG 1 EACH TAB PO PRN (14:49)
[2023-06-05] MEDS: SODIUM CHLORIDE 0.9% 1,000 ML IV SCH (15:53)
[2023-06-05] MEDS: LACTATED RINGERS 1,000 ML IV SCH (15:53)
--- NOTE | 2023-06-05 15:56 | XR ---
EXAMINATION TYPE: XR knee limited LT DATE OF EXAM: 06/05/2023 COMPARISON: None HISTORY: Postop knee replacement TECHNIQUE: 2 view left knee FINDINGS: Tibial and femoral components in place. No acute fracture or dislocation is evident. Postsu rgical soft tissue changes are evident. IMPRESSION: 1. No acute osseous quality post placement
[2023-06-05] MEDS: HYDROcodone/APAP 7.5-325MG 1 EACH TAB PO PRN (16:32)
--- NOTE | 2023-06-05 18:16 | P.CONS ---
History of Present Illness - Reason for Consult Consult date: 06/05/23 hypothyroidism Requesting physician: Jean Rosenberg - Chief Complaint knee pain - History of Present Illness Patient is a 62-year-old female with GERD, dyslipidemia, hypothyroidism CKD stage III and osteoarthritis who for left total knee arthroplasty. Patient tolerated the procedure well without any immediate postoperative complications. Patient seen and examined at bedside. She denies any chest pain, shortness of breath, nausea, vomiting, lightheaded or dizziness. She endorses a history of acid reflux, hypothyroidism, dyslipidemia, and chronic kidney disease stage III. She does not know why she has chronic kidney disease. She denies any history of diabetes or hypertension. NO hx of prior LAYA or prolonged hospital stays. She states her outpatient physician assistant professor of chemistry has been monitoring this closely. Vital signs reviewed General: nontoxic, no distress, appears at stated age Derm: warm, dry Eyes: EOMI, no lid lag, anicteric sclera, pupils equal round reactive to light ENT: Nose and ears atraumatic Cardiovascular: S1S2 reg, no murmur, no edema Lungs: clear to auscultation bilateral, no rhonchi, no rales, no wheeze, no accessory muscle use Abdominal: soft, nontender to palpation, no guarding Ext: no gross muscle atrophy, no contractures Neuro: CN II-XII grossly intact, No focal neuro deficits Psych: Alert, oriented, appropriate affect Assessment/Plan: 62-year-old female status post left total knee arthroplasty Dyslipidemia -Zocor 20 mg at night GERD - PPI q 48 hours Hypothyroidism -Synthroid 125 mcg daily CKD stage IIIa - undetermined etiology -Repeat labs in AM - check UA for protein and glucose Imaging: None Data Review: Preoperative labs reviewed hemoglobin 13.2, creatinine 1.2 with GFR 51, potassium normal at 4.4 Thank you for allowing us to participate in the care of this pleasant patient. Do not hesitate to contact us with questions. Someone can be reached from the [facility] hospitalist group all hours of the day at [phone] or via [employer]. This dictation was prepared using [employer] voice recognition software. Though every attempt is made to correct errors during dictation some may still exist. Past Medical History Past Medical History: GERD/Reflux, Hyperlipidemia, Osteoarthritis (OA), Renal Disease, Thyroid Disorder Additional Past Medical History / Comment(s): fell and injured rt knee. generalized arthritis. lower back ? bulge and nerve issues steroid shot 01/04/22 History of Any Multi-Drug Resistant Organisms: None Reported Past Surgical History: Joint Replacement, Tonsillectomy Additional Past Surgical History / Comment(s): rt hip replacement 2005, sinus surgery, dental work, right total knee arthroplasty (01.24.22) Past Anesthesia/Blood Transfusion Reactions: No Reported Reaction Additional Past Anesthesia/Blood Transfusion Reaction / Comm: blood transfusion no issue, dad had hard time waking up from anesthesia Past Psychological History: Depression Smoking Status: Never smoker Past Alcohol Use History: Rare Past Drug Use History: None Reported - Past Family History Mother Family Medical History: Cancer Additional Family Medical History / Comment(s): melanoma in eye . liver cancer . knees replaced Father Family Medical History: Cancer, Congestive Heart Failure (CHF) Additional Family Medical History / Comment(s): cancer jaw and prostate. pacemaker ,valve problems Medications and Allergies Home Medications Medication Instructions Recorded Confirmed Type Aspirin 81 mg PO DAILY 01/19/22 06/05/23 History Calcium Carbonate [Calcium] 600 mg PO DAILY 01/19/22 06/05/23 History Levothyroxine Sodium [Synthroid] 125 mcg PO DAILY 01/19/22 06/05/23 History Multivitamins, Thera [Multivitamin 1 tab PO DAILY 01/19/22 06/05/23 History (formulary)] Taiban-3/Dha/Epa/Fish Oil [Fish Oil 1 each PO DAILY 01/19/22 06/05/23 History 1,000 mg Softgel] Omeprazole [PriLOSEC] 20 mg PO Q48H 01/19/22 06/05/23 History Sertraline [Zoloft] 100 mg PO DAILY 01/19/22 06/05/23 History Simvastatin [Zocor] 20 mg PO HS 01/19/22 06/05/23 History buPROPion [Wellbutrin] 150 mg PO BID 01/19/22 06/05/23 History Aspirin [Adult Low Dose Aspirin EC] 81 mg PO BID 30 Days #60 tab 06/05/23 Rx Diclofenac Sodium [Voltaren] 75 mg PO BID #60 tab 06/05/23 Rx HYDROcodone/APAP 7.5-325MG [[place] 1 - 2 tab PO Q6H PRN #32 tab 06/05/23 Rx 7.5-325] Omeprazole [PriLOSEC] 20 mg PO DAILY #30 cap 06/05/23 Rx Sennosides [Senokot] 2 tab PO DAILY PRN #60 tablet 06/05/23 Rx Allergies Allergy/AdvReac Type Severity Reaction Status Date / Time adhesive tape Allergy Itching Verified 06/05/23 10:47 niacin Allergy Rash/Hives Verified 06/05/23 10:47 sulfamethoxazole Allergy Unknown Verified 06/05/23 10:47 [From Bactrim] trimethoprim [From Bactrim] Allergy Unknown Verified 06/05/23 10:47 Physical Exam Osteopathic Statement: *. No significant issues noted on an osteopathic structural exam other than those noted in the History and Physical/Consult. Vitals: Vital Signs Temp Pulse Pulse Resp BP Pulse Ox 06/05/23 15:33 70 14 142/70 95 06/05/23 15:18 69 16 146/80 95 06/05/23 15:04 75 16 145/71 95 06/05/23 14:49 97.2 F L 86 18 144/83 96 06/05/23 12:15 56 L 16 138/71 94 L 06/05/23 10:35 97.5 F L 64 16 154/75 93 L Intake and Output 06/05/23 06/05/23 06/05/23 06:59 14:59 22:59 Intake Total 1150 750 Output Total 100 Balance 1050 750 Intake: IV 1150 Intake, IV Titration 400 Amount Sodium Chloride 0.9% 1, 400 000 ml @ 65 mls/hr IV . [id number] [facility] Rx#:[id number] Oral 350 Output: Estimated Blood Loss 100 Other: Weight 79.6 kg 79.6 kg
[2023-06-05] MEDS: PANTOPRAZOLE 40 MG TABLET PO SCH (18:22)
[2023-06-05 19:07] LABS: Appearance,Urine Clear (Clear); Bilirubin,Urine Negative (Negative); Blood,Urine Negative (Negative); Color,Urine Colorless; Glucose,Urine (UA) Negative (Negative); Ketones,Urine Negative (Negative); Leukocyte Esterase,Urine Negative (Negative); Nitrite,Urine Negative (Negative); PH, Urine 6.5 (5.0-8.0); Protein,Urine Negative (Negative); Specific Gravity,Urine 1.019 (1.001-1.035); Urobilinogen,Urine <2.0 mg/dL (<2.0)
[2023-06-05] MEDS ORDERED: buPROPion 100 MG TAB PO SCH (21:00)
[2023-06-05] MEDS: ATORVASTATIN 10 MG TAB PO SCH (21:01)
[2023-06-05] MEDS: ASPIRIN 81 MG PO SCH (21:02)
[2023-06-05] MEDS: SENNOSIDES-DOCUSATE SODIUM 1 EACH TAB PO SCH (21:02)
[2023-06-05] MEDS: buPROPion SR 150 MG TABLET.ER PO SCH (21:18)
[2023-06-06] MEDS: LEVOTHYROXINE 125 MCG TAB PO SCH (05:38)
[2023-06-06 06:16] LABS: HCT 34.4 % (34.0-46.0); MCV 90.6 fL (80.0-100.0); Platelet Count 200 k/uL (150-450); RDW 12.5 % (11.5-15.5); WBC 9.9 k/uL (3.8-10.6)
[2023-06-06 06:43] LABS: African American GFR (CKD) 59 (>60 ml/min/1.73 sqM); Anion Gap 10 mmol/L; Blood Urea Nitrogen 21 mg/dL (7-17); Calcium 8.7 mg/dL (8.4-10.2); Carbon Dioxide 24 mmol/L (22-30); Chloride 106 mmol/L (98-107); Glucose 116 mg/dL (74-99); Non-African American GFR(CKD) 51 (>60 ml/min/1.73 sqM); Potassium 4.4 mmol/L (3.5-5.1); Sodium 140 mmol/L (137-145)
--- NOTE | 2023-06-06 07:40 | P.PN ---
Subjective Pain in the left knee, but not excessive. Overall the patient is doing well. She's been up several times. Objective - Vital Signs Vital signs: Vital Signs Temp 98.8 F 06/06/23 07:32 Pulse 74 06/06/23 07:32 Resp 17 06/06/23 07:32 BP 105/60 06/06/23 07:32 Pulse Ox 94 L 06/06/23 07:32 FiO2 Intake & Output 06/05/23 06/06/23 06/06/23 18:59 06:59 18:59 Intake Total 1900 1742.5 Output Total 100 Balance 1800 1742.5 Weight 79.6 kg Intake: IV 1150 Intake, IV Titration 400 782.5 Amount Sodium Chloride 0.9% 1, 400 682.5 000 ml @ 65 mls/hr IV . [id number] [facility] Rx#:[id number] ceFAZolin 2 gm In Sodium 100 Chloride 0.9% 50 ml @ 100 mls/hr IVPB Q8H [facility] Rx#: [id number] Oral 350 960 Output: Estimated Blood Loss 100 Other: Voiding Method Toilet # Voids 4 - Exam Resting comfortably in bed. Alert and able to answer questions. Dressing over the anterior aspect of the knee is intact. Mild swelling. Femoral nerve function is intact. Distal the patient is able to actively plantarflex and dorsiflex her ankle and her toes. - Labs CBC & Chem 7: 06/06/23 05:54 06/06/23 05:54 Labs: Abnormal Lab Results - Last 24 Hours (Table) 06/06/23 06/06/23 Range/Units 05:54 05:54 Hgb 11.0 L (11.4-16.0) gm/dL BUN 21 H (7-17) mg/dL Creatinine 1.15 H (0.52-1.04) mg/dL Glucose 116 H (74-99) mg/dL Assessment and Plan Assessment: Postoperative day #1 status post left total knee replacement, doing well Plan: 1. Weightbearing as tolerated on the operative extremity. Up with assistance. 2. DVT prophylaxis with aspirin 81 mg twice a day 3. Physical therapy for gait training and mobilization 4. Internal medicine for perioperative medical management 5. PT for gait training 6. Disposition: The patient would like to see how she does today with physical therapy and her pain is. After her right total knee replacement she stayed in the hospital for 2 days. If she is comfortable and passes therapy and would like to go home today I'm okay with her discharging. If she needs another night we can keep her until tomorrow..
[2023-06-06] MEDS: SERTRALINE 100 MG TAB PO SCH (08:49)
[2023-06-06] MEDS: hydrOXYzine pamoate 25 MG CAP PO PRN (14:13)
[2023-06-06 14:21] VITALS: BP 133/75; PULSE 87; RESP 16; TEMP 99
--- NOTE | 2023-06-06 16:21 | P.DS ---
Providers Date of admission: 06/05/2023 Attending physician: Jean Rosenberg Consults: 06/05/23 14:47 Consult Physician Routine Consulting Provider: Mallika Yeung Consult Reason/Comments: medical management Do you want consulting provider notified?: Yes Primary care physician: [facility] Course: The patient is a very pleasant 62 year old female who was admitted yesterday. She was taken to the OR where an uncomplicated total knee was performed. Following surgery she was admitted to the ortho floor. She had 2 doses of antibiotics. She was started on Aspirin for DVT prophylaxis. She was seen by IM. She did well on POD#1 and was cleared for discharge. Patient Condition at Discharge: Good Plan - Discharge Summary Discharge Rx Participant: Yes New Discharge Prescriptions: New HYDROcodone/APAP 7.5-325MG [[place] 7.5-325] 1 - 2 tab PO Q6H PRN #32 tab PRN Reason: Pain Omeprazole [PriLOSEC] 20 mg PO DAILY #30 cap Diclofenac Sodium [Voltaren] 75 mg PO BID #60 tab Aspirin [Adult Low Dose Aspirin EC] 81 mg PO BID 30 Days #60 tab Sennosides [Senokot] 2 tab PO DAILY PRN #60 tablet PRN Reason: Constipation Ferrous Sulfate [Feosol] 325 mg PO BID #60 tab Continue Multivitamins, Thera [Multivitamin (formulary)] 1 tab PO DAILY Cameron-3/Dha/Epa/Fish Oil [Fish Oil 1,000 mg Softgel] 1 each PO DAILY buPROPion HCL [buPROPion HCL SR] 150 mg PO BID Aspirin 81 mg PO DAILY Levothyroxine Sodium [Synthroid] 125 mcg PO DAILY Simvastatin [Zocor] 20 mg PO HS Sertraline [Zoloft] 100 mg PO DAILY Omeprazole [PriLOSEC] 20 mg PO Q48H Calcium Carbonate [Calcium] 600 mg PO DAILY Discharge Medication List Aspirin 81 mg PO DAILY 01/19/22 [History] Calcium Carbonate [Calcium] 600 mg PO DAILY 01/19/22 [History] Levothyroxine Sodium [Synthroid] 125 mcg PO DAILY 01/19/22 [History] Multivitamins, Thera [Multivitamin (formulary)] 1 tab PO DAILY 01/19/22 [History] Cameron-3/Dha/Epa/Fish Oil [Fish Oil 1,000 mg Softgel] 1 each PO DAILY 01/19/22 [History] Omeprazole [PriLOSEC] 20 mg PO Q48H 01/19/22 [History] Sertraline [Zoloft] 100 mg PO DAILY 01/19/22 [History] Simvastatin [Zocor] 20 mg PO HS 01/19/22 [History] Aspirin [Adult Low Dose Aspirin EC] 81 mg PO BID 30 Days #60 tab 06/05/23 [Rx] Diclofenac Sodium [Voltaren] 75 mg PO BID #60 tab 06/05/23 [Rx] HYDROcodone/APAP 7.5-325MG [[place] 7.5-325] 1 - 2 tab PO Q6H PRN #32 tab 06/05/23 [Rx] Omeprazole [PriLOSEC] 20 mg PO DAILY #30 cap 06/05/23 [Rx] Sennosides [Senokot] 2 tab PO DAILY PRN #60 tablet 06/05/23 [Rx] buPROPion HCL [buPROPion HCL SR] 150 mg PO BID 06/05/23 [History] Ferrous Sulfate [Feosol] 325 mg PO BID #60 tab 06/06/23 [Rx] Follow up Appointment(s)/Referral(s): [facility]ory[facility] [REFERRING] - 06/11/23 3:00 pm () [facility] [[facility]] - As Needed Jean Rosenberg MD [Medical Doctor] - 06/20/23 8:45 am Activity/Diet/Wound Care/Special Instructions: 1. Weight-bear as tolerated on your operative extremity unless instructed otherwise. Use a walker or other assistive device to ambulate. 2. Leave surgical dressing in place. If your dressing becomes saturated with blood, there is drainage, or the dressing becomes loose please contact the office. 3. It is okay to shower with your surgical dressing, but do not submerge in water (no hot tubs, bath's, swimming etc.) 4. Make sure to take her blood clot prevention medication as prescribed (aspirin, Eliquis, Xarelto, and Plavix are commonly prescribed medications for blood clot prevention) 5. While taking [place] or Percocet for pain make sure you're taking a stool softener (Colace) and drink lots of water. 6. Keep all follow-up appointments as scheduled. You will usually be seen in 1-2 weeks following surgery. 7. Please contact the office with any questions or concerns [phone] Discharge Disposition: HOME WITH HOME HEALTH SERVICES
--- NOTE | 2023-06-06 17:44 | P.PN ---
Progress Note - Text Progress Note Date: 06/06/23 Hospital course: [Spoke to Dr. Shelton from [facility]. Patient of Dr. King. He is okay f or me resuming the care] This is a pleasant 62-year-old patient who follows with Dr. King. Chronic stable medical conditions include GERD, hyperlipidemia, osteoporosis , hypothyroid, depression. Patient has undergone left total knee arthroplasty. Pain reasonable. Did ambulate with therapy. No nausea vomiting. Did tolerate a diet. Current medications reviewed Past medical history to include: GERD, hyperlipidemia, osteoporosis, hypothyroid, depression, osteoarthritis Social history: Lives alone. No smoking and occasional alcohol. Works for [employer] Physical examination: VITAL SIGNS: 99, 87, 16, 133 x 75, 92% room air GENERAL: Up in a chair, comfortable EYES: Pupils equal. Conjunctiva normal. HEENT: External appearance of nose and ears normal, oral cavity grossly normal. NECK: JVD not raised; masses not palpable. HEART: First and second heart sounds are normal; no edema. LUNGS: Respiratory rate normal; clear to auscultation. ABDOMEN: Soft, nontender, liver spleen not palpable, no masses palpable. PSYCH: Alert and oriented x3; mood and affect normal. MUSCULOSKELETAL:No Clubbing/cyanosis;muscles-grossly intact, OA, dressing over the left knee INVESTIGATIONS, reviewed in the clinical context: June 05: White count 9.9 hemoglobin 11 platelets 200 potassium 4.4 BUN 21 creatinine 1.15 Assessment and plan: -Left total knee arthroplasty Pain control. Aspirin for DVT prophylaxis -Acute postprocedure blood loss anemia expected from surgery Ferrous sulfate added -Depression otherwise specified Wellbutrin, Zoloft -Hyperlipidemia Zocor -Hypothyroid Synthroid -GERD Omeprazole -Primary osteoarthritis Pain control as needed Care was discussed with the patient. Questions answered
== END 2023-06-06 16:20 | disposition home health service (06) ==
LOC: OR 10:25 → 4SSUR 14:51 → OR 06-06 16:20
PROVIDERS: ATTEND Orthopaedic Surgery
DX: M17.12 Unilateral primary osteoarthritis, left knee (principal); G89.18 Other acute postprocedural pain; M25.762 Osteophyte, left knee; F10.90 Alcohol use, unspecified, uncomplicated; M21.162 Varus deformity, not elsewhere classified, left knee; M21.161 Varus deformity, not elsewhere classified, right knee; Z98.890 Other specified postprocedural states; Z79.899 Other long term (current) drug therapy
CPT/HCPCS: 0055T; 27447; 64447; 64999; 80048; 81003; 85027